=== PATIENT | female | born 1960 | race Caucasian/White ===

== ENCOUNTER 2017-11-13 16:53 | Emergency (ER) | payer OTHER ==
[~2017-11-13] VITALS: Ht 167.6 cm; Wt 55.8 kg
[~2017-11-13 16:53] MED LIST: ACIPHEX 20 MG T20 MG PO; ATIVAN0.5 MG PO; ATIVAN1 MG PO; BENTYL10 MG PO; DOXEPIN HCL10 MG PO; LAMOTRIGINE150 MG PO; LEVOTHYROXIN0.025 M1 PG; LORTAB 5 MG/5001 TA1 PO; MEDROLDOSEPACK PO; NORCO 5-325 TA1 EACH PO; PHENERGAN 25 MG25 MG PO; PREDNISONE 20 M20 MG PO; PROAIR HFA8.5 GM INH; SEROQUEL 25 MG25 M1 PO; TUSSINMAX15 MG/5 ML PO; TUSSIONEX PENN473 ML PO; VENTOLIN HFA INH8 GM IH; ZOFRAN 4 MG ORAL4 M1; ZOFRAN ODT4 MG PO
[2017-11-13] MEDS ORDERED: MEDROL DOSPAK21 TA1 PO (17:08)
[2017-11-13] MEDS ORDERED: TUSSIONEX PENN115 ML PO (17:08)
== END 2017-11-13 17:26 | disposition home or self-care (01) ==
LOC: ER 16:53
DX: J06.9 Acute upper respiratory infection, unspecified (principal); Z90.49 Acquired absence of other specified parts of digestive tract; Z90.710 Acquired absence of both cervix and uterus; Z88.1 Allergy status to other antibiotic agents; Z88.8 Allergy status to other drugs, medicaments and biological substances